=== PATIENT | female | born 1960 | race Hispanic/Latino ===

== ENCOUNTER 2018-06-26 13:10 | Outpatient (RCR) | payer OTHER, SELFPAY ==
--- NOTE | 2018-06-26 16:38 | HP.OTFCE_ITS ---
HP OT Functional Capacity Eval - Task Lift Floor (Occasional 1-33% of Day): 35 Floor (Frequent 34-66% of Day): 25 Floor PDL: Light-Medium Knee (Occasional 1-33% of Day): 35 Knee (Frequent 34-66% of Day): 25 Knee PDL: Light-Medium Waist (Occasional 1-33% of Day): 35 Waist (Frequent 34-66% of Day): 25 Waist PDL: Light-Medium Shoulder (Occasional 1-33% of Day): 35 Shoulder (Frequent 34-66% of Day): 15 Shoulder PDL: Light-Medium Overhead (Occasional 1-33% of Day): 25 Overhead (Frequent 34-66% of Day): 15 Overhead PDL: Light - Work Activity/Posture Bending: Occasional Ability (1-33% of day) Squatting: Occasional Ability (1-33% of day) Kneeling: Occasional Ability (1-33% of day) Reaching out: Frequent Ability (34-66% of day) Reaching up: Frequent Ability (34-66% of day) Sitting: Frequent Ability (34-66% of day) Walking: Frequent Ability (34-66% of day) Standing: Frequent Ability (34-66% of day) - Reference Duration Sedentary Sedentary Light Light Light Medium Medium Medium Heavy Very Heavy Heavy Occasional (0-33% of day) Frequent (34-66% of day) Constant (67-100% of day) 10 # Negligible Negligible 15 # 8 # Negligible 20 # 10# Negli. 35 # 18 # 7 # 50 # 25 # 10 # 75 # 100 # >100 # 38 # 50 # >50 # 15 # 20 # >20 # - Patient Information Hand Dominance: R BP (Medication Use/Usual Values per pt report): No - Medical History Medical History Including Restrictions: No medical restirctions given to her by her doctor via printed report from doctors office and Pt. verbal reported. - Diagnoses Diagnoses: Current: She noted that she was referred to evaluation due to fibromyaglia. PMHx: - Symptoms Symptoms: Client noted symptoms of pain. She reports being at 6/10 pain with inconsisent use of pain scale. She noted I didn't want to come becasue I have been in so much pain. She noted numbness in both wrists and noted some numbness at 4th toe from breaks but localized. - Pain Pain: She reports pain at 6/10 with us eof functional pain scale. Movements noted some increase in pain but no increase in rating report by client. She is currently not on pain management program and notes does not regularly take pain medicine. Reports she is 'scared of becoming additicted but that she was getting releif with oxycodon'. She reports that she is awaiting further imaging and has not had MRI as indurance will likley not cover. She has not recieevd physical therapy of aqua therapy to help with conditions. She reports use of Biofreeze to help manage pain. Iker Pain Questionnaire is a self-report pain assessment to determine a patient?s accurate psychodynamics for accurate pain rating. A score of 30 or high indicates poor psychodynamics and the greater probability of decreased accuracy with accurate pain reporting. Day 1: Pre- Iker: 20. Post Iker: 19. Fear Avoidance Questionnaire (FAQ) is a client self-report assessment for 18-64+ that has shown to be reliable and valid for determining increased fear with movements. A score of 96 or higher indicates increased fear avoidance behaviors. FAQ results: 63. Scale 1: fear avoidance belief about work: 26. Scale 2: fear avoidance belief about physical activity: 15. Oswestry Neck and Low back questionnaire is a self-report assessment in which patients report their perceived level of disability based on their perceived pain. Day 1. Oswestry : - Work History Work History: She last worked at [employer]. She noted that she left January 2018. 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 She worked there for about 11 months per patient report. She noted she had to lift 20 lbs for job. She reports needing to stand for shift with two 15 min breaks. She reports working mostly 6 hour shifts. - Behavioral Behavioral: Stefania reports having lives all over the [place]. She noted that she grew up in [place] in which she has plans to retrun, lived in [place], and then ended up in [place]. She was pleasant and cooperative throughout session but appears tired for most of session. She reports lack of sleep due to pain. She appears to feel more pain that what was observed with movements at times but does have history of PTSD. - ADLS ADLS: Stefania lives with in duplex apartment with four steps to enter. Once in duplex she has FFSU with basement. She explained there are approximately 12 steps to basement where laundry is located. She is completing all daily self- care activities independently and is also driving, completing grocery shopping, and yardwork as tolerated. She further noted ?I just want my feet to work so I can get back to work?. - Physical Examination Physical Examination: BP 147/88. HR 66. 02 97 ROM: limbar flex gonio. 0-33. lumbar ext 0-21. gonio L1 88. goni L 5 75. Hip flexion from flexion R 0-87, L 0-90. knee. l 0-114. R 0-115 Strength: Completed manual muscle testing: Upper Body: 4/5. Lower Body: 4/5 Right Autotransfusionist Strength Average: 49.00 Left Autotransfusionist Strength Average: 41.00 Right Lateral Pinch Average: 14.00 Left Lateral Pinch Average: 12.00 Right Tripod Pinch Average: 10.66 Left Tripod Pinch Average: 8.66 Comments: 5 Span Autotransfusionist Test: Position 1: R 35, L 27 lbs. Position 2: R 53, L 46 lbs. Position 3: R 46, L 38 lbs. Position 4: R 33, L 35 lbs. Position 5: R 30, L 28 lbs Sensation: Completed monofilament touch test to determine sensation. Normal on touch test is 2.83. She score normal for touch sensation. R hand: 2nd 2.83, 3rd 2.83, 4th 2.83, 5th 2.83, thumb 2.83. L hand: 2nd 2.83, 3rd 2.83, 4th 2.83, 5th 2.83, thumb 2.83 Fine Motor: Completed Purdue Pegboard Test to further determine fine motor control and dexerity ability: R hand: 15. L hand: 10. Both Hands: 11. Right + Left+ both : 36. Asseembly: 7 Balance: Functional reach test is used to determine static balance in patients. A score of 15 is normal and less than 10 increases risk of falling. A score of 6 or less significantly increases a patient?s risk of falling. Harrison 1: 12.5 inches. Harrison 2: 12.5 inches. Harrison 3: 12.5 inches. Average: 12.5 inches. HR prior to 59 bpm: - Non Material Handling Activities Bendinx, 10x in 50 seconds, and 1x10 faster in 45 seconds. Able to complete full bend with need for increased knee flexion. Completed in. HR 53 Squattinx, 10x in 40 seconds, 10 x faster in 23 seconds. Kneelinx, 10x in 30 seconds,. Unequal Wbing, increased lateral leaning on R side and Heartrate 74, blood pressure 179/103 (automatic) 141/90 (manually). Seated break during blood pressure and then resumed activity. 10 x faster. Completed i approximately 23 seocnds. Completed with need for right hand to thoguht for support and about 25% of full kneel. Increased pain in foot, Reaching out/up: From standing position: Reaching out: 3x, 10 x in about 15 seocnds, and 10x fast in 10 seconds. Reaching up: 3x, 10x in 13 seconds, 10x fast in 10 seconds. HR 67 Walking: Completed walking around facility. She was unable to complete full walk test as needed to leave session to picker and sorter load and unload granddaughter. Standing: Completed standing for 53 minutes with 2x breaks. Sitting: Completed sitting for 40 mins. She appears to have been able to sit longer and sitting is relief for feet. Climbing Stairs: Able to complete one set of 10 stairs without issue. She completes stairs in home to basement (12 steps) and step sinto home (2-3 steps). - Dynamic Occasional Lifting Capacity Floor Lift: Max Weight: 1x 40 lbs. Occassional: 1x 35 lbs. Frequent: 5x 25 lbs. Completed with fair body mechanics. Some increased compensations and spinal alignment. Knee Lift: Pccasional : 35 lbs. Frequent: 25 lbs. Lifts with Arms more than legs with unequal distribution. Heartrate: 67 bpm. Pain rated at 6/10 Waist Lift: Occasional: 35 lbs. Frequent: 25 lbs. Completed with fair body mechanics. Increased distribution of load to bilateral upper extremities. She is able to maintain spinal alignment. Heartrate: 65 bpm. Pain rated at 6/10 Shoulder Lift: Occasional: 35 lbs. Frequent: 15 lbs. Heartrate: 67 bpm. Pain rated at 6/10 Overhead Lift: Occasional: 25 lbs. Frequent: 15 lbs. Completed with fair body mechanics. Some increased cervical flexion noted, equal weigthbearing observed through bilateral lower extremities, and some increased compensations and mechanical changes with weight above 35 lbs. Heartrate: 69 bpm. Pain rated at 6/10 Carrying: Bilateral carry with 25 lbs with some increased thoracic extension. Heartrate: 67 bpm. Pain rated at 6/10. Blood Pressure: 163/87 mmHg (automatic), 137/81 mmHg (manual)
--- NOTE | 2018-06-28 09:26 | HP.OTFCE_ITS ---
HP OT Functional Capacity Eval - Task Lift Floor (Occasional 1-33% of Day): 35 Floor (Frequent 34-66% of Day): 25 Floor (Constant 67-100% of Day): 10 Floor PDL: Light-Medium Knee (Occasional 1-33% of Day): 35 Knee (Frequent 34-66% of Day): 25 Knee (Constant 67-100% of Day): 10 Knee PDL: Light-Medium Waist (Occasional 1-33% of Day): 35 Waist (Frequent 34-66% of Day): 25 Waist (Constant 67-100% of Day): 10 Waist PDL: Light-Medium Shoulder (Occasional 1-33% of Day): 35 Shoulder (Frequent 34-66% of Day): 15 Shoulder (Constant 67-100% of Day): 10 Shoulder PDL: Light-Medium Overhead (Occasional 1-33% of Day): 25 Overhead (Frequent 34-66% of Day): 15 Overhead (Constant 67-100% of Day): 10 Overhead PDL: Light - Work Activity/Posture Bending: Occasional Ability (1-33% of day) Squatting: Occasional Ability (1-33% of day) Kneeling: Occasional Ability (1-33% of day) Reaching out: Frequent Ability (34-66% of day) Reaching up: Frequent Ability (34-66% of day) Sitting: Frequent Ability (34-66% of day) Walking: Frequent Ability (34-66% of day) Standing: Frequent Ability (34-66% of day) - Reference Duration Sedentary Sedentary Light Light Light Medium Medium Medium Heavy Very Heavy Heavy Occasional (0-33% of day) Frequent (34-66% of day) Constant (67-100% of day) 10 # Negligible Negligible 15 # 8 # Negligible 20 # 10# Negli. 35 # 18 # 7 # 50 # 25 # 10 # 75 # 100 # >100 # 38 # 50 # >50 # 15 # 20 # >20 # - Patient Information Height: 58 cm Weight:: 58.831 kg Hand Dominance: R BP (Medication Use/Usual Values per pt report): No - Medical History Medical History Including Restrictions: No medical restirctions given to her by her doctor via printed report from doctors office as well as verbal report by patient. - Diagnoses Diagnoses: Current: Stefania was referred for functional capacity evaluation due to fibromyalgia and chronic low lumbar related pain. PMHx: Per Pt. report she has history of bone spur of R heel, DDD of cervical spine and lumbar, degenerative joint disease affecting B knees, and fibromyalgia. 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 From 05/23/18 from phone call and from today of 06/26/18: She notes that she has not had MRI within the last year and has had no previous MRI or imaging to confirm conditions. As per Dr. Monet?s office after speaking with nurse Patterson, Pt. did have bilateral knee x rays two years ago which were normal and refused to get further imaging when in office. No physical therapy received for current condition. - Symptoms Symptoms: Client noted symptoms of generalized pain. She reports being at 6/10 pain with inconsistent use of pain scale and demonstrated behaviors. She noted I didn't want to come because I have been in so much pain. She noted further numbness in both wrists and noted some numbness at 4th toe from previous fracture. Numbness if localized per patient report. - Pain Pain: She reports pain at 6/10 with use of functional pain scale. Movements are reported to increase pain per patient but no increase in rating reported by client during movement tasks of evaluation. Appears to have some inconsistencies with reported pain symptoms and actual rating of pain. She is currently not on pain management program per report and notes she does not regularly take pain medicine. She did however take two aspirins this morning around 7:00 or 8:00 a.m. Doctors report from 03/02/18 reports she was to follow up with Dr. Moscoso for pain management in February, but Pt. explained she did not follow up with pain management clinic. Additionally, she was to have MRI completed of cervical and lumbar per patient's report on doctor noted but Stefania reports no MRI completion in last year. Client further explained she was waiting to hear if insurance approved imaging. Stefania reports she is 'scared of becoming addicted but that she was getting relief with oxycodone' and prefers not to take pain medications but took three in one day because ?pain in my right foot was so bad. They think I might have a heel spur. Once I told doctor I took that many they took me off the medications. Stefania reports L knee pain and general pain throughout body. She has not received physical therapy or aquatic therapy to help with conditions. She reports use of Biofreeze to help manage pain. From report when talking with nurse, Yesenia, and further reading report from doctor an x-ray to both knees were completed two years ago in which imaging indicated normal joints. Stefania completed the following self-report questionnaires to help therapist assess pain: Iker Pain Questionnaire is a self-report pain assessment to determine a patient?s accurate psychodynamics for accurate pain rating. A score of 30 or high indicates poor psychodynamics and the greater probability of decreased accuracy with accurate pain reporting. Day 1: Pre- Iker: 20. Post Iker: 19. Pain decreased post completion of evaluation. Fear Avoidance Questionnaire (FAQ) is a client self-report assessment for 18-64+ that has shown to be reliable and valid for determining increased fear with movements. A score of 96 or higher indicates increased fear avoidance behaviors. FAQ results: 63. Scale 1: fear avoidance belief about work: 26. Scale 2: fear avoidance belief about physical activity: 15. Oswestry Neck and Low back questionnaire is a self-report assessment in which patients report their perceived level of disability based on their perceived pain. Oswestry : 13/50= 26 % perceived disability - Work History Work History: She last worked at [employer]. She noted that she left around January 2018. 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 She worked there for about 9-11 months per patient report. She noted she had to lift 20 lbs for job. She reports needing to stand for six-hour shift with two 15 min breaks. She reports working mostly 6-hour shifts. She noted ?it was an easy job? but then later needed to quit due to pain. - Behavioral Behavioral: Stefania reports having lived all over the [place]. She noted that she grew up in [place] in which she has plans to return, she has lived in [place], and then ended up in [place]. She was cooperative throughout session but appeared tired and at times lethargic for most of session. Additionally, a flat affect was noted but she did express emotion for love of granddaughter. She reports lack of sleep due to pain and that ?she can?t and won?t cry in front of due to pain? and that she ' doesn't like to should her family how much pain she is in'. She reports she helps care for her granddaughter and that ?I will do anything for that girl. I love her so much?. She reports intent to move back to [place] but noted sister has and it is unclear if that was who she was intending of living with when moving. She appears to feel more pain than what was observed with movements and mechanical changes but does have diagnosis of fibromyalgia as well as post-traumatic stress disorder both of which can affect pain. - ADLS ADLS: Stefania lives with in duplex apartment with four steps to enter. Once in duplex she has first floor set-up with basement. She explained there are approximately 12 steps to basement where laundry is located. She is completing all daily self-care activities independently and is also driving, completing grocery shopping, and yardwork as tolerated. She explained that she gets up around 4:30 a.m. to regularly cook breakfast. She further noted ?I just want my feet to work so I can get back to work?. - Physical Examination Physical Examination: The purpose of this functional capacity evaluation (FCE) was to determine Stefania's physical ability. Stefania was referred from Dr. Monet?s office due to chronic pain and patient report of inability to work for the last five to six months due to pain. This FCE was performed in order to mold maker helper in the determination of Stefania's physical ability and eligibility to get social security disability. Aerobic limiting factor: 85% of max adjust HR= (220- age)*.85 = 140 bpm. Calculated max weight: 60% of weight = 77.4 lbs. Blood Pressure (BP): 147/88 mmHg. Heart Rate: 66 bpm. Oxygen at room saturation: 97% ROM: Range of Motion measurements completed for the following: Lumbar Spine: Lumbar flexion with goniometer: 0-33 degrees- with increased compensations noted by patient throughout thoracic spine so completed inclinometric measurements to get more accurate measurements and are as follows: Inclinometric measurements: -L1: 88. - L 5: 75. -Total lumbar movements: 13 degrees. Lumbar extension with goniometer: Extension: 0-21 degrees. Hip range of motion: Hip flexion from flexion from supine: - R 0-87. - L 0-90. Knee Flexion: -L 0-114 from prone position and limited by soft tissue. -R 0-115 from prone position and limited by soft tissue. Strength: Completed manual muscle testing on the following: Upper Body: Shoulder flexion: R 4/5, L 4/5. Shoulder abduction: R 4/5, L 4/5. Elbow flexion: R 4/5, L 4/5. Elbow extension: R 4/5, L 4/5. Wrist flexion: R 4/5, L 4/5. Wrist extension: R 4/5, L 4/5. Individual Finger flexion (digit 2-5th ): R 4/5, L 4/5. Lower Body: Hip flexion: R 4-/5, L 4/5. Hip abduction: R 4+/5, L 4+/5. Hip Adduction: R 4+/5, L 4+/5. Knee extension: R 4+/5, L 4+/5. Knee flexion: R 4-/5, L 4+/5. Ankle dorsiflexion: R 4/5, L 4/5. Ankle plantarflexion: R 4/5, L 4/5. Completed empty can test as well as bicep load test in which increased good shoulder integrity of rotator cuff and superior labrum. Right Carpentry Specialist Strength Average: 49.00 Right Carpentry Specialist Strength Percentile: 64th Left Carpentry Specialist Strength Average: 41.00 Left Carpentry Specialist Strength Percentile: 62 nd Right Lateral Pinch Average: 14.00 Right Lateral Pinch Percentile: 75th Left Lateral Pinch Average: 12.00 Left Lateral Pinch Percentile: between 50th and 75th Right Tripod Pinch Average: 10.66 Right Tripod Pinch Percentile: above 25 but below 50th Left Tripod Pinch Average: 8.66 Left Tripod Pinch Percentile: 25th Comments: 5 Span Carpentry Specialist Test: Position 1: R 35, L 27 lbs. Position 2: R 53, L 46 lbs. Position 3: R 46, L 38 lbs. Position 4: R 33, L 35 lbs. Position 5: R 30, L 28 lbs Sensation: Completed monofilament touch test to determine sensation. Normal on touch test is 2.83. She score normal for touch sensation. R hand: 2nd 2.83, 3rd 2.83, 4th 2.83, 5th 2.83, thumb 2.83. L hand: 2nd 2.83, 3rd 2.83, 4th 2.83, 5th 2.83, thumb 2.83 Fine Motor: Completed Purdue Pegboard Test to further determine fine motor control and dexterity ability: R hand: 15. - percentile: approximately 30th. L hand: 10. - percentile: below 1st. Both Hands: 11. -percentile: 5th percentile. Right + Left+ both: 36. - percentile: approximately 2nd. Assembly: 7. - percentile: below 1st Balance: Functional reach test is used to determine static balance in patients. A score of 15 is normal and less than 10 increases risk of falling. A score of 6 or less significantly increases a patient?s risk of falling. [place] 1: 12.5 inches. [place] 2: 12.5 inches. [place] 3: 12.5 inches. Average: 12.5 inches. HR prior to FGA 59 bpm. Functional Gait Assessment (FGA) is a dynamic balance test to determine vestibular functioning and general dynamic balance ability of patient 18-65+. This assessment can be used with clients of various backgrounds to determine functional dynamic balance needed to complete every day work related tasks. 1.Gait Level Surface:2. 2.Change in Gait Speed: 3. 3.Gait with horizontal head turns:2. 4.Gait with vertical head turns:3. 5.Gait and pivot t urn:3. 6.Step over obstacle:2. 7.Gait with narrow base of support: 2. 8.Gait with eyes closed: 2. 9.Ambulating Backwards: 3. Heart rate prior to stairs: 60 bpm. 10.Steps: 2. Hear rate post stairs: 68 bpm. Total Score: 24/maximum score 30. Blood pressure post stairs 169/105 mmHg. After 5 mins seated break: 150/90 mmHg - Non Material Handling Activities Bendinx, 10x in 50 seconds, and 1x10 faster in 45 seconds. Able to complete full bend with need for slight increased knee flexion. Completed with some increased compensation of thoracic flexion. No increase in pain reported by patient. Slight increase in second 'faster set'. Equal weightbearing into bilateral lower extremities and no signs of pain related behaviors. Heartrate remained consistent and Stefania showed signs of fatigue but was able to continue standing for next task of squatting. Denied dizziness or no feeling well during or after task. Heartrate: 53 Squattinx, 10x in 40 seconds, 10 x faster in 23 seconds. Completed squatting with fair body mechanics. She exhibits appropriate foot width to promote movements and was able to complete about 75% of full squat. Observed mechanical changes with increased thoracic spine extension. No mechanical deficits observed with 75% of full squat movements. After tasks needed short 1- minute seated break. Reported pain consistent at 6/10. Heart rate consistent for task. Kneelinx, 10x in 30 seconds, 10 x faster. Completed in approximately 23 seconds. Unequal weightbearing, increased lateral leaning to right lower extremity side, and observable fair body mechanics. Heartrate increased to 74, blood pressure 179/103 mmHg (automatic) 141/90 mmHg (manually). Seated break due to blood pressure and then resumed activity once it lower back to 141/90 mmHg. Completed 10 x faster with need for right hand to thigh for support and about 25% of full kneel. Increased pain in foot noted but able to continue standing for next task. Noted that R foot pain is severe at times. Reaching out/up: From standing position: Reaching out: 3x, 10 x in about 15 seconds, and 10x fast in 10 seconds. Reaching up: 3x, 10x in 13 seconds, 10x fast in 10 seconds. Good body mechanics. No mechanical changes observed, or pain behaviors noted. Upper extremity observed to be able to obtain appropriate range of motion needed for task and equal range to bilateral upper extremities. Heartrate consistent at 67 bpm. Walking: Completed walking around facility. She was unable to complete full walk test as needed to leave session to picker/puller granddaughter. Stood or walked around facility for 15 mins prior to needing seated break and was able to complete standing related tasks 53 minutes with need for two seated breaks lasting 1-2 minutes sitting breaks. 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 She is able to continue to complete stairs in home and continues to go out into community. Standing: Completed standing, both static and dynamic tasks, for 53 minutes with two seated tasks lasting 1-2 minutes. Noted foot pain in right foot but rated pain consistent at 6/10. Some pain behaviors noted when taking seated break but often able and to continue task after short break. Sitting: Completed sitting for 40 mins. She appears to have been able to sit longer and sitting is a relief for feet per patient report. She noted that sitting is often her most comfortable position. Climbing Stairs: Able to complete one set of 10 stairs. She completed stairs with slight antalgic gait and use of one handrail for ascending tasks and between none and one hand rails for descending tasks. She was exhibited to be more cautious with descending tasks and used eyes frequently as well as trunk extension to complete tasks. She completes stairs in home to basement (12 steps) and steps into home (2-3 steps). She noted at previous job, [employer], she did not need to complete any stairs. - Dynamic Occasional Lifting Capacity Floor Lift: Max Weight: 1x 40 lbs. Occasional: 1x 35 lbs. Frequent: 5x 25 lbs. Completed with fair body mechanics. Some increased compensations and spinal ali gnment noted with weight over 35 lbs. Occasional weight is 35 lbs. Equal weight bearing distribution observed to bilateral upper extremities. Observed to lift with arms over legs with greater pull of both coming from upper body. No pain behaviors noted. Stefania rated pain consistently at 6/10 pain. Knee Lift: Occasional: 1x35 lbs. Frequent: 5x25 lbs. Prior to task noted this should be easier since box was up off floor. Unequal distribution between upper body and lower body. Fair body mechanics. Slight compensations noted of increased spinal extension. Pain consistent at 6/10. No pain behaviors observed. Heartrate: 67 bpm. Pain rated at 6/10 Waist Lift: Occasional: 1x 35 lbs. Frequent: 5x 25 lbs. Completed with fair body mechanics. Increased distribution of load to bilateral upper extremities. Unequal weightbearing observed between upper and lower body. Minimal compensations observed of trunk extension observed. No pain behaviors noted. Heartrate maintained. Reports pain at 6/10. Heartrate: 65 bpm. Pain rated at 6/10 Shoulder Lift: Occasional: 1x 35 lbs. Frequent: 5x 15 lbs. Completed with fair body mechanics. Increased mechanical compensations noted of cervical flexion and lumbar extension to place box at 35 lbs. She should not exceed that weight and increased weight causes increased mechanical changes. Minimal compensations noted at 15 lbs. She was able to maintain spinal alignment and good mechanics with 15 lbs. Pain report at 6/10. Slight grimace observed. Heartrate: 67 bpm. Pain rated at 6/10 Overhead Lift: Occasional: 1x 25 lbs. Frequent: 5x 15 lbs. Completed with fair body mechanics. Some increased cervical flexion noted, equal weight bearing observed through bilateral lower extremities, and some increased compensations and mechanical changes with weight above 35 lbs. She reports pain at 6/10 but limited pain behaviors observed. Performance classifies at light range physical performance range. Heartrate: 69 bpm. Pain rated at 6/10 Carrying: Bilateral carry with 1x 25 lbs for 20 feet with some increased thoracic extension but good body mechanics and equal weight distribution to bilateral lower and upper extremities. Heartrate: 67 bpm. Pain rated at 6/10. Blood Pressure: 163/87 mmHg (automatic), 137/81 mmHg (manual). Completed seated breaks prior to leaving session.
--- NOTE | 2018-06-28 09:26 | HP.OTFCE.D ---
FCE D/C Summary - Discharge DODIE PAZ was seen for a one time visit for an FCE on 06/26/18 and is discharged.
== END 2018-06-26 19:00 | disposition home or self-care (01) ==
LOC: OT 13:10
PROVIDERS: Family Provider Student in an Organized Health Care Education/Training Program; PCP Student in an Organized Health Care Education/Training Program; Referring Provider Student in an Organized Health Care Education/Training Program; Visit Provider Student in an Organized Health Care Education/Training Program
DX: M79.7 Fibromyalgia (principal); M54.5 Low back pain; G89.29 Other chronic pain
CPT/HCPCS: 97750

== ENCOUNTER 2020-02-24 12:57 | Emergency (ER) | payer OTHER, SELFPAY ==
[2020-02-24 12:58] VITALS: BP 182/75; PULSE 52; RESP 18; TEMP 36.1; O2SAT 100; BMI 22.3
--- NOTE | 2020-02-24 13:44 | EKG12_ITS ---
Test Reason : Blood Pressure : / mmHG Vent. Rate : 054 BPM Atrial Rate : 054 BPM P-R Int : 138 ms QRS Dur : 078 ms QT Int : 478 ms P-R-T Axes : 020 045 027 degrees QTc Int : 453 ms Sinus bradycardia Otherwise normal ECG Confirmed by ARIANA JOHNSON, JORDAN ([id number]), editor continuity and script JOLANTA PIPER ([id number]) on 02/26/2020 9:31:39 AM Referred By: Confirmed By:JORDAN LANE MD
[2020-02-24 13:47] LABS: Absolute Lymphocyte Count 0.89 X10^3/uL (0.83-4.51); Absolute Neutrophil Count 8.6 X10^3/uL (2.0-7.7); Basophil# 0.02 X10^3/uL; Basophil% 0.2 % (0-1); Eosinophil# 0.01 X10^3/uL; Eosinophils% 0.1 % (0-5); Hematocrit 38.6 % (37-47); Hemoglobin 13.7 g/dL (12.0-15.0); Lymphocyte # 0.89 X10^3/ul (4.0); Lymphocyte % 9.1 % (19-41); Mean Corp Hgb Conc 35.5 g/dL (32-36); Mean Corpuscular Hgb 33.3 pg (27.0-32.0); Mean Corpuscular Volume 93.9 fL (81-99); Monocyte# 0.17 X10^3/uL; Monocyte% 1.7 % (0-10); NRBC Flagged by Analyzer 0 % (0-5); Neutrophil # 8.63 X10^3/uL (2.7-7.7); Neutrophil % 88.5 % (47-70); Platelet Count 295 K/mm3 (150-450); RBC Distribution Width CV 13.3 % (11.6-14.6); RBC Distribution Width SD 44.9 fl (35.1-43.9); Red Blood Count 4.11 M/mm3 (4.2-5.4); White Blood Count 9.8 K/mm3 (4.4-11.0)
[2020-02-24 14:00] LABS: Anion Gap 4 (5-15); BUN 10 mg/dL (7-18); BUN/Creat Ratio 18.5 RATIO (10-20); Calcium,Total 8.5 mg/dL (8.5-10.1); Chloride 105 mmol/L (98-107); Creatinine, Serum 0.54 mg/dL (0.55-1.02); EST Glomerular Filtration Rate 123 mL/min (>60); Est Glom Filt Rate - Afr Amer 149 mL/min (>60); Estimated Creatinine Clearance 99.26 ml/min; Glucose 128 mg/dL (74-106); Potassium 3.5 mmol/L (3.5-5.1); Sodium Level 134 mmol/L (136-145)
[2020-02-24] MEDS: Morphine 4 MG/ML Syringe IV (14:27)
[2020-02-24] MEDS: Ondansetron 4 MG/2 ML Vial IV (14:27)
[2020-02-24] MEDS: 0.9% Normal Saline 1,000 ML 150 ML IV (14:30)
[2020-02-24 16:00] LABS: AST(SGOT) 8 U/L (15-37); Alanine Aminotransfer ALT/SGPT 19 U/L (13-56); Albumin, Serum 3.9 g/dL (3.2-5.0); Alkaline Phosphatase 165 U/L (45-117); Bilirubin, Direct 0.09 mg/dL (0.00-0.30); Globulin 4.2 g/dL (2.2-4.2); Lipase 63 U/L (73-393); Protein, Total 8.1 g/dL (6.4-8.2)
--- NOTE | 2020-02-24 16:04 | CT_ITS ---
STUDY: CT ABDOMEN AND PELVIS WITHOUT CONTRAST REASON FOR EXAM: Female, 59 years old. SUDDEN ONSET OF EPIGASTRIC PAIN, N/V, VOMITING UP BILE RADIATION DOSAGE (If Supplied By Facility): CTDIvol = ( 11.59 ) mGy, DLP = ( 461.20 ) mGycm TECHNIQUE: Transaxial images were obtained from the dome of the diaphragm to the symphysis pubis without oral contrast, and without intravenous contrast. Sagittal and coronal images were reconstructed. Individualized dose optimization techniques were used for this CT. COMPARISON: None. FINDINGS: Minor atelectasis within the dependent portion lungs.. The visualized portions of the heart are within normal limits. Nonspecific fatty infiltration of liver without mass or bile duct dilatation. Normal gallbladder and extrahepatic biliary system. Normal spleen. Normal pancreas. Normal bilateral adrenal glands. Normal right kidney. Normal left kidney. There is thickening of the rugal folds of the stomach which is mildly distended as is the duodenum in association with thickening of the [place] of the post bulbar duodenum consistent with nonspecific gastroduodenitis. Normal small intestine. Diverticular changes of the descending colon without evidence for acute diverticulitis.. The appendix is visualized and appears normal. Mild atherosclerotic changes of the aorta without evidence for aneurysm.. Normal inferior vena cava. Normal retroperitoneum. Normal urinary bladder. Normal abdominal wall. Normal osseous structures. CT/Abdomen/Pelvis W IV Cont ONLY IMPRESSION: Findings consistent with nonspecific gastroduodenitis. No evidence for small bowel obstruction. Diverticular changes of the descending colon without evidence for acute diverticulitis Electronically Signed: Bennie Guerra MD at 17:00 EDT , Service support ,
--- NOTE | 2020-02-24 16:05 | ED.VIS.GEN ---
History of Present Illness Chief Complaint: Abd Pain Informant: Patient, Family Onset: Today Current Severity: Moderate Maximum Severity: Severe Narrative: Patient presents secondary to upper abdominal pain that started at 4 AM this morning. She has had nausea and dry heaves. Family states that she does not typically complain of pain and when patient was easily agreeable to coming to the emergency room they were concerned that there was seriously wrong. Patient has not taken anything for pain. Her only prior abdominal surgery is tubal ligation. - Past Medical History (1) Degenerative disc disease Status: Chronic (2) Arthritis Status: Chronic Past Medical History - Allergies and Home Meds Allergies/Adverse Reactions: Allergies No Known Allergies Allergy (Verified 02/24/20 13:01) Primary Care Physician: Yaya Monet DO [Primary Care Provider] - Prior records reviewed: Yes Surgical History: - - Tubal ligation Smoking Status: Never smoker Review of Systems General: Denies: Chills, Fever Eyes: Denies: Visual changes - bilaterally ENT: Denies: Bilateral ear pain Cardiovascular: Denies: Chest pain Respiratory: Denies: Dyspnea, Cough Gastrointestinal: Reports: Abdominal pain, Nausea. Denies: Diarrhea, Constipation Genitourinary: Denies: Dysuria Musculoskeletal: Denies: Swelling, Extremity Pain Neurological: Denies: Headache Hematologic: Denies: Easy bruising, Easy bleeding Allergy: Denies: Uticaria Physical Exam Vital Signs/Narrative: Vital Signs Temp Pulse Resp BP Pulse Ox 02/24/20 12:58 97.0 F L 52 L 18 182/75 H 100 Inital Vital Signs reviewed: Yes General: Well nourished, Well developed Head: Normocephalic ENT: Moist mucous membranes Neck: Supple Cardiovascular: Regular rate, Regular rhythm Respiratory: No distress, CTA bilaterally Abdomen: Soft, Tender - Epigastric tenderness to palpation.. Negative for: Guarding, Rebound tenderness Extremities: Nontender Skin: Normal color Neurological: Alert, Oriented x3 Psychological: - - Anxious Diagnostic/Tx/Re-eval Impressions Abdomen/Pelvis CT 02/24/20 16:04 IMPRESSION: Findings consistent with nonspecific gastroduodenitis. No evidence for small bowel obstruction. Diverticular changes of the descending colon without evidence for acute diverticulitis Electronically Signed: Bennie Guerra MD at 17:00 EDT , Service support , 02/24/20 16:04 Abdomen/Pelvis W IV Cont ONLY [CT] Stat Laboratory Results 02/24/20 02/24/20 02/24/20 13:30 13:30 13:30 WBC 9.8 RBC 4.11 L Hgb 13.7 Hct 38.6 MCV 93.9 MCH 33.3 H MCHC 35.5 RDW Std Deviation 44.9 H RDW Coeff of Bibi 13.3 Plt Count 295 MPV 9.0 Immature Gran % (Auto) 0.400 Neut % (Auto) 88.5 H Lymph % (Auto) 9.1 L [place] % (Auto) 1.7 Eos % (Auto) 0.1 Baso % (Auto) 0.2 Absolute Neuts (auto) 8.6 H Absolute Lymphs (auto) 0.89 Nucleated RBC % 0 Sodium 134 L Potassium 3.5 Chloride 105 Carbon Dioxide 25.0 Anion Gap 4 L BUN 10 Creatinine 0.54 L Estim Creat Clear Calc 99.26 Est GFR (MDRD) Af Amer 149 Est GFR (MDRD) Non-Af 123 BUN/Creatinine Ratio 18.5 Glucose 128 H Calcium 8.5 Total Bilirubin 0.30 Direct Bilirubin 0.09 AST 8 L ALT 19 Alkaline Phosphatase 165 H Troponin I < 0.015 Total Protein 8.1 Albumin 3.9 Globulin 4.2 Lipase 63 L - EKG Initial EKG Interpretation: Sinus Bradycardia - Sinus bradycardia at 54 bpm with no acute ischemia. Follow-up EKG Interpretation: Sinus Bradycardia - Sinus bradycardia at 52 with no acute ischemia. - Medical Decision Making Patient was given morphine, Zofran, and Protonix. I was notified by nursing staff that she was having increased chest pain. Repeat EKG is unremarkable and GI cocktail was ordered. CT scan reveals evidence of gastritis and duodenitis. Her liver enzymes and lipase are normal. Patient will be given prescription for Protonix as well as Zofran. I have recommended follow-up with surgery for potential EGD. ED Disposition - Plan for ED Patient: Disposition: Home or Assisted Living Diagnosis: Gastritis, Duodenitis Instructions: ED Gastritis Prescriptions: Pantoprazole Sodium [Protonix] 40 mg PO DAILY #30 tab Transmission Status: Pending to [facility] #30 Ondansetron [Zofran Odt] 4 mg PO Q8H PRN PRN #14 tab PRN Reason: Nausea Transmission Status: Pending to [email or web address] #30 Referrals: Yesenia Ornelas MD [STAFF PHYSICIAN] - 1-2 Weeks Yaya Monet DO [Primary Care Provider] - 1 Week if not improving
--- NOTE | 2020-02-24 16:10 | EKG12_ITS ---
Test Reason : CP Blood Pressure : / mmHG Vent. Rate : 052 BPM Atrial Rate : 052 BPM P-R Int : 138 ms QRS Dur : 076 ms QT Int : 500 ms P-R-T Axes : 024 046 015 degrees QTc Int : 465 ms Sinus bradycardia Otherwise normal ECG Confirmed by NOEL JOHNSON, ALISSA ([id number]), editorial cartoonist JOLANTA PIPER ([id number]) on 02/26/2020 10:44:26 AM Referred By: FRAN Confirmed By:ALISSA COHEN MD
[2020-02-24] MEDS: Mag Hydrox/Al Hydrox/Simeth 30 ML UDC PO (17:30)
[2020-02-24 17:33] VITALS: RESP 16
== END 2020-02-24 17:35 | disposition home or self-care (01) ==
PROVIDERS: Emergency Provider Emergency Medicine; PCP Student in an Organized Health Care Education/Training Program
DX: K29.70 Gastritis, unspecified, without bleeding (principal); K29.80 Duodenitis without bleeding
CPT/HCPCS: 74177; 80048; 80076; 83690; 84484; 85025; 93005; 96361; 96365; 96375; 99285; J7030; Q9967; A4216; J2405

== ENCOUNTER 2021-02-24 08:56 | Inpatient (IN) | payer OTHER, SELFPAY ==
[2021-02-24] VITALS (9 sets, daily range): BP systolic 136–185; BP diastolic 69–127; PULSE 50–64; RESP 16–18; TEMP 36.6–37.7; O2SAT 97–100; BMI 20.4; BMI 19.5
--- NOTE | 2021-02-24 09:25 | CT_ITS ---
STUDY: CT ABDOMEN AND PELVIS WITH CONTRAST REASON FOR EXAM: Female, 60 years old. Abdominal pain RADIATION DOSAGE (If Supplied By Facility): CTDIvol = ( 11.59 ) mGy, DLP = ( 461.20 ) mGycm TECHNIQUE: Transaxial images were obtained from the dome of the diaphragm to the symphysis pubis with oral contrast. 75 ml of ISOVUE-370 contrast was administered. Sagittal and coronal images were reconstructed. Individualized dose optimization techniques were used for this CT. COMPARISON: None. FINDINGS: The visualized lung bases are clear. The visualized portions of the heart and pericardium are within normal limits. There are no calcified gallstones present. The liver is within normal limits. There are no suspicious hepatic lesions. The spleen is normal in size. The pancreas is within normal limits. The adrenal glands are within normal limits. There are no renal or ureteral stones. There is no hydronephrosis. There are no focal renal lesions. Normal visualized stomach. There is no bowel obstruction. There is bowel wall thickening the transverse colon, descending colon and sigmoid colon. This is consistent with colitis. The appendix is visualized and appears normal. The aorta is normal in caliber. There is no abdominal or pelvic free air, free fluid, fluid collection or lymphadenopathy. There are no destructive osseous lesions. CT/Abdomen/Pelvis W IV Cont ONLY IMPRESSION: Colitis in the transverse, descending and sigmoid colon. No bowel obstruction. Normal appendix. No free air, free fluid or fluid collection. Electronically Signed: Milind Mims MD at 10:13 EDT Tel , Service support ,
--- NOTE | 2021-02-24 09:26 | EDS_ITS ---
HPI HPI - GI History of Present Illness Chief Complaint: Abd Pain Narrative Narrative: 60-year-old female presenting with nausea, vomiting, diarrhea with generalized abdominal pain which is worse in epigastric area. Patient states that this is been ongoing for about 3 days. She is not been able to hold down food or fluids. Patient denies any significant medical problems except for acid reflux and some arthritis. Her daughter states that they have all been eating the same food and she did not think it was food poisoning. She states that they thought it was a stomach flu but since it is not getting better they bring her in for evaluation. Patient does not have a cough, shortness of breath, body aches, chills or fever. Patient denies previous abdominal surgeries. Patient has not been vaccinated for COVID-19. She has no known sick contacts. Nobody in the household is ill other than her. No known exposures to illness. Patient admits to smoking but states she does not drink alcohol. Patient does admit to recent clindamycin use for a dental infection. This was about 2 weeks ago. PFSH PFSH Medical History no medical history Home Medications ondansetron 4 mg PO Q8H PRN PRN #14 tab 02/24/20 [Rx Last Taken Unknown] pantoprazole 40 mg PO DAILY #30 tab 02/24/20 [Rx Last Taken Unknown] Allergy/AdvReac Type Severity Reaction Status Date / Time No Known Allergies Allergy Verified 02/24/21 08:58 Social History Smoking Status: Never smoker [facility] ED Constitutional Constitutional ED: Denies chills or fever(s) ENT ENT ED: Denies rhinorrhea or sore throat Cardiovascular Cardiovascular: Denies chest pain or palpitations Respiratory/Chest Respiratory/Chest: Denies cough, dyspnea or sputum Gastrointestinal Gastrointestinal: Reports abdominal pain, diarrhea, nausea and vomiting Genitourinary Genitourinary ED: Denies dysuria Musculoskeletal Musculoskeletal: Denies arthralgias, back pain, myalgias or neck pain Integumentary Denies Abrasions or rash Neurologic Neurologic: Reports headache(s); Denies paresthesias or weakness EXAM Physical Exam Const Vital Signs: 02/24/21 08:56 02/24/21 08:58 02/24/21 09:39 Temperature 97.8 F 97.8 F Temperature Source Temporal Temporal Pulse Rate 61 61 61 Respiratory Rate 18 18 18 Blood Pressure 185/127 H 185/127 H 159/87 H Blood Pressure Mean 146 146 111 Pulse Ox 99 99 100 Oxygen Delivery Method Room Air Room Air Room Air 02/24/21 09:58 02/24/21 10:34 Temperature 97.8 F Temperature Source Temporal Pulse Rate 53 L 53 L Respiratory Rate 16 16 Blood Pressure 156/88 H 156/88 H Blood Pressure Mean 110 110 Pulse Ox 100 100 Oxygen Delivery Method Room Air Room Air Positive well nourished General Appearance ED: NAD; Negative for pallor HEENT Reports dry mucous membranes normocephalic and atraumatic Mouth ED: Yes dry mucous membranes Mouth: dry mucous membranes Eyes PERRL and EOMs intact bilaterally General Eye ED: Negative for pale conjunctiva or scleral icterus Resp normal respiratory effort and clear to auscultation bilaterally Cardio regular rate and regular rhythm GI GI Narrative: Generalized abdominal tenderness with the most tenderness being in the epigastrium. Negative Rodriguez sign. Abdomen is nonperitoneal. Back/Spine no CVA tenderness Neuro Sensorium / Orientation: alert, oriented to person, oriented to place and or iented to time Psych mental status grossly normal and thought process normal Skin General Skin Exam: Negative for jaundice or pallor MDM MDM MDM Narrative Medical decision making narrative: 60-year-old female presenting with abdominal pain which is diffuse and worse in the epigastrium. Patient states she has been vomiting and not been able to tolerate p.o. intake. She also complains of diarrhea. It is found that she was recently on amoxicillin for her tooth and then clindamycin. She has no history of C. difficile however her white blood cell count is elevated at 20.9. Renal function is normal. Potassium slightly low at 3.1. Magnesium is 2.1. LFTs are normal. Urinalysis negative for infection. I did obtain a CT of the abdomen pelvis which does show pancolitis. Patient is unable to give me a stool sample in ER but I have concern for C. difficile colitis. Given that she cannot tolerate p.o. intake and likely will need antibiotics for C. difficile I did discuss the patient with the hospitalist for admission and symptomatic treatment until we can obtain a stool study. She was amenable. Patient admitted in stable condition. Impression: 1. Diarrhea 2. Leukocytosis 3. Concern for C. difficile colitis Lab Data Attestation: I reviewed the patient's lab results. Labs: Laboratory Results - last 24 hr 02/24/21 02/24/21 02/24/21 09:14 09:14 09:14 WBC 20.9 H RBC 4.65 Hgb 14.3 Hct 42.4 MCV 91.2 MCH 30.8 MCHC 33.7 RDW Std Deviation 43.1 RDW Coeff of Bibi 12.9 Plt Count 354 MPV 8.9 Immature Gran % (Auto) 0.600 Neut % (Auto) 89.2 H Lymph % (Auto) 5.7 L [place] % (Auto) 4.4 Eos % (Auto) 0.0 Baso % (Auto) 0.1 Absolute Neuts (auto) 18.7 H Absolute Lymphs (auto) 1.19 Nucleated RBC % 0 Sodium 137 Potassium 3.1 L Chloride 104 Carbon Dioxide 24.0 Anion Gap 9 BUN 9 Creatinine 0.65 Estim Creat Clear Calc 80.39 Est GFR (MDRD) Af Amer 120 Est GFR (MDRD) Non-Af 99 BUN/Creatinine Ratio 13.8 Glucose 127 H Calcium 9.0 Magnesium 2.1 Total Bilirubin 0.40 AST 6 L ALT 20 Alkaline Phosphatase 116 Total Protein 8.4 H Albumin 3.8 Globulin 4.6 H Albumin/Globulin Ratio 0.8 L Lipase 65 L Urine Color Urine Clarity Urine pH Ur Specific [place] Urine Protein Urine Glucose (UA) Urine Ketones Urine Occult Blood Urine Nitrite Urine Bilirubin Urine Urobilinogen Ur Leukocyte Esterase Urine RBC Urine WBC Ur Squamous Epith Cells Urine Bacteria Urine Mucus Urine Yeast 02/24/21 10:20 WBC RBC Hgb Hct MCV MCH MCHC RDW Std Deviation RDW Coeff of Bibi Plt Count MPV Immature Gran % (Auto) Neut % (Auto) Lymph % (Auto) [place] % (Auto) Eos % (Auto) Baso % (Auto) Absolute Neuts (auto) Absolute Lymphs (auto) Nucleated RBC % Sodium Potassium Chloride Carbon Dioxide Anion Gap BUN Creatinine Estim Creat Clear Calc Est GFR (MDRD) Af Amer Est GFR (MDRD) Non-Af BUN/Creatinine Ratio Glucose Calcium Magnesium Total Bilirubin AST ALT Alkaline Phosphatase Total Protein Albumin Globulin Albumin/Globulin Ratio Lipase Urine Color Yellow Urine Clarity Sl. Cloudy Urine pH 6.0 Ur Specific [place] 1.015 Urine Protein 30 H Urine Glucose (UA) Normal Urine Ketones 50 H Urine Occult Blood 250 H Urine Nitrite Negative Urine Bilirubin Negative Urine Urobilinogen Normal Ur Leukocyte Esterase Negative Urine RBC 10-25 SEEN Urine WBC 0 SEEN Ur Squamous Epith Cells 0 SEEN Urine Bacteria RARE Urine Mucus 0 SEEN Urine Yeast 2+ Radiography Diagnostic Testing: Radiology Impression Abdomen/Pelvis CT 02/24/21 09:25 IMPRESSION: Colitis in the transverse, descending and sigmoid colon. No bowel obstruction. Normal appendix. No free air, free fluid or fluid collection. Electronically Signed: Milind Mims MD at 10:13 EDT Tel , Service support , Discharge Plan Disposition Disposition: Acute Care Hospital [facility] Discharge Date/Time: 02/24/21 11:56
[2021-02-24 09:31] LABS: Absolute Lymphocyte Count 1.19 X10^3/uL (0.83-4.51); Absolute Neutrophil Count 18.7 X10^3/uL (2.0-7.7); Basophil# 0.02 X10^3/uL; Basophil% 0.1 % (0-1); Eosinophil# 0.01 X10^3/uL; Hematocrit 42.4 % (37-47); Hemoglobin 14.3 g/dL (12.0-15.0); Lymphocyte # 1.19 X10^3/ul (0.83-4.51); Lymphocyte % 5.7 % (19-41); Mean Corp Hgb Conc 33.7 g/dL (32-36); Mean Corpuscular Hgb 30.8 pg (27.0-32.0); Mean Corpuscular Volume 91.2 fL (81-99); Mean Platelet Vol. 8.9 fl (6.2-12.0); Monocyte# 0.92 X10^3/uL; Monocyte% 4.4 % (0-10); NRBC Flagged by Analyzer 0 % (0-5); Neutrophil # 18.66 X10^3/uL (2.7-7.7); Neutrophil % 89.2 % (47-70); Platelet Count 354 K/mm3 (150-450); RBC Distribution Width CV 12.9 % (11.6-14.6); RBC Distribution Width SD 43.1 fl (35.1-43.9); Red Blood Count 4.65 M/mm3 (4.2-5.4); White Blood Count 20.9 K/mm3 (4.4-11.0)
[2021-02-24] MEDS: 0.9% Normal Saline 1,000 ML 1000 ML IV (09:35)
[2021-02-24] MEDS: Ondansetron 4 MG/2 ML Vial IV (09:36)
[2021-02-24] MEDS: Morphine 4 MG/ML Syringe IV (09:36)
[2021-02-24 09:47] LABS: ALB/GLOB Ratio 0.8 RATIO (0.9-2.4); AST(SGOT) 6 U/L (15-37); Alanine Aminotransfer ALT/SGPT 20 U/L (13-56); Albumin, Serum 3.8 g/dL (3.2-5.0); Alkaline Phosphatase 116 U/L (45-117); Anion Gap 9 (5-15); BUN 9 mg/dL (7-18); BUN/Creat Ratio 13.8 RATIO (10-20); Chloride 104 mmol/L (98-107); Creatinine, Serum 0.65 mg/dL (0.55-1.02); EST Glomerular Filtration Rate 99 mL/min (>60); Est Glom Filt Rate - Afr Amer 120 mL/min (>60); Estimated Creatinine Clearance 80.39 ml/min; Globulin 4.6 g/dL (2.2-4.2); Glucose 127 mg/dL (74-106); Lipase 65 U/L (73-393); Potassium 3.1 mmol/L (3.5-5.1); Protein, Total 8.4 g/dL (6.4-8.2); Sodium Level 137 mmol/L (136-145)
[2021-02-24 10:20] LABS: Magnesium 2.1 mg/dL (1.6-2.6)
[2021-02-24 10:26] LABS: Mucous, Urine 0 SEEN /hpf (<or=2+); Squamous Epithelial Cells - UA 0 SEEN /hpf (5-10); White Blood Cells 0 SEEN /hpf (0-5)
[2021-02-24 10:28] LABS: Color, Urine Yellow (Yellow); Glucose, Dipstick Normal (Normal); Ketone-Dipstick 50 mg/dl (Negative); Leukocyte Esterase-Dipstick Negative /ul (Negative); Nitrite-Dipstick Negative (Negative); Occult Blood-Urine 250 /ul (Negative); Protein-Dipstick 30 mg/dl (Negative); Specific Gravity, Urine 1.015 (1.002-1.030); Urine Bilirubin Dipstick Negative (Negative); Urine Clarity Sl. Cloudy (Clear); Urine Urobilinogen Normal (Normal)
[2021-02-24 10:37] LABS: Bacteria RARE /hpf (None Seen); Red Blood Cells-Urine 10-25 SEEN /hpf (0-5); Yeast-Urine 2+ /hpf (None Seen)
--- NOTE | 2021-02-24 11:04 | HP.PCM.HOS_ITS ---
HPI - General General Date of Admission: 02/24/21 HPI Narrative DODIE PAZ, is a 60 F with a PMT as outlined who presents with a complaint of abdominal pain. Symptoms had been going on for a 3 days. She had associated nausea, vomiting, and diarrhea and had not been able to eat or drink anything for a few days. She doesnt have a history of C Diff, but was recently on amoxicillin and clindamycin for a tooth infection a few weeks ago. She doesnt think it is related to any food she ate, and is the only one sick in her house. She says diarrhea is aggravated by food. She has no other symptoms and denies any known contact. Vitals showed BP of 156/88, NE of 53, RR of 16 and she was saturating at 100% on room air. Labs showed wbc of 20.9, Hb of 14.3, platelets of 354 and chemistry was significant for potassium of 3.1; Cr was 0.65.Urinalysis was negative for bacteria. CT of the abomen and pelvis showed evidence of pancolitis. She is being admitted to be managed for acute colitis, with suspicion for C Diff. C Diff was pending as she hadnt had a bowel movement since being in the ED. PFSH Medical History Anxiety DDD (degenerative disc disease) Depression Osteoarthritis Smoker Medical History no medical history Home Medications ondansetron 4 mg PO Q8H PRN PRN #14 tab 02/24/20 [Rx Last Taken Unknown] pantoprazole 40 mg PO DAILY #30 tab 02/24/20 [Rx Last Taken Unknown] Allergy/AdvReac Type Severity Reaction Status Date / Time ibuprofen Allergy Upset Verified 02/24/21 12:15 Stomach dust Allergy Shortness Uncoded 02/24/21 12:15 of breath Social History Smoking Status: Current every day smoker tobacco type: cigarettes ROS Constitutional Constitutional: Reports fatigue, fever(s), malaise and weakness; Denies anorexia, change in weight or chills ENT HEENT: Denies dysphagia, headache(s), nasal congestion, nasal discharge or sinus pressure Cardiovascular Cardiovascular: Denies chest pain, dyspnea on exertion, lightheadedness, orthopnea, palpitations or paroxysmal nocturnal dyspnea Respiratory/Chest Respiratory/Chest: Denies cough, dyspnea, productive cough, shortness of breath at rest or shortness of breath with exertion Gastrointestinal Gastrointestinal: Reports abdominal pain, diarrhea, nausea and vomiting; Denies constipation, hematemesis or hematochezia Genitourinary Genitourinary: Denies burning urination or dysuria Musculoskeletal Musculoskeletal: Denies back pain Neurologic Neurologic: Denies confusion, focal weakness or headache(s) Psychiatric Psychiatric: Denies anxiety or depression Endocrine Endocrinology: Denies change in body appearance Hematologic/Lymphatic Hematologic/Lymphatic: Denies anemia Vital Signs Vital Signs Vital Signs: 02/24/21 08:56 02/24/21 08:58 02/24/21 09:39 Temperature 97.8 F 97.8 F Temperature Source Temporal Temporal Pulse Rate 61 61 61 Respiratory Rate 18 18 18 Blood Pressure 185/127 H 185/127 H 159/87 H Blood Pressure Mean 146 146 111 Pulse Ox 99 99 100 Oxygen Delivery Method Room Air Room Air Room Air 02/24/21 09:58 02/24/21 10:34 Temperature 97.8 F Temperature Source Temporal Pulse Rate 53 L 53 L Respiratory Rate 16 16 Blood Pressure 156/88 H 156/88 H Blood Pressure Mean 110 110 Pulse Ox 100 100 Oxygen Delivery Method Room Air Room Air Weight Weight: 119 lb Body Mass Index (BMI) 20.4 Physical Exam Const alert and oriented x3 General Appearance: cooperative HEENT head/scalp atraumatic and hearing grossly normal bilaterally HEENT Narrative: dry mucosal membranes Eyes PERRL, EOMs intact bilaterally and conjunctivae normal Neck no lymphadenopathy Resp normal respiratory effort, no retractions, no use of accessory muscles and clear to auscultation bilaterally Cardio regular rate, regular rhythm, S1 normal heart sound, S2 normal heart sound and no murmurs GI GI Narrative: abdomen soft, tender, no guarding or rebound tenderness, no organomegaly. Extremity normal to inspection, full ROM and no clubbing, cyanosis or edema Peripheral Pulses: Yes pulses 2+ throughout Skin no rashes or lesions noted Neuro oriented x3, CN's II-XII intact bilaterally and moves all extremities Sensorium / Orientation: awake and alert Psych affect normal Results Lab / Micro Data Result Diagrams: 02/24/21 09:14 02/24/21 09:14 Labs: Laboratory Results - last 24 hr 02/24/21 09:14: WBC 20.9 H, RBC 4.65, Hgb 14.3, Hct 42.4, MCV 91.2, MCH 30.8, MCHC 33.7, RDW Std Deviation 43.1, RDW Coeff of Bibi 12.9, Plt Count 354, MPV 8.9, Immature Gran % (Auto) 0.600, Neut % (Auto) 89.2 H, Lymph % (Auto) 5.7 L, [place] % (Auto) 4.4, Eos % (Auto) 0.0, Baso % (Auto) 0.1, Absolute Neuts (auto) 18.7 H, Absolute Lymphs (auto) 1.19, Nucleated RBC % 0 02/24/21 09:14: Sodium 137, Potassium 3.1 L, Chloride 104, Carbon Dioxide 24.0, Anion Gap 9, BUN 9, Creatinine 0.65, Estim Creat Clear Calc 80.39, Est GFR (MDRD) Af Amer 120, Est GFR (MDRD) Non-Af 99, BUN/Creatinine Ratio 13.8, Glucose 127 H, Calcium 9.0, Total Bilirubin 0.40, AST 6 L, ALT 20, Alkaline Phosphatase 116, Total Protein 8.4 H, Albumin 3.8, Globulin 4.6 H, Albumin/Globulin Ratio 0.8 L, Lipase 65 L 02/24/21 09:14: Magnesium 2.1 02/24/21 10:20: Urine Color Yellow, Urine Clarity Sl. Cloudy, Urine pH 6.0, Ur Specific [place] 1.015, Urine Protein 30 H, Urine Glucose (UA) Normal, Urine Ketones 50 H, Urine Occult Blood 250 H, Urine Nitrite Negative, Urine Bilirubin Negative, Urine Urobilinogen Normal, Ur Leukocyte Esterase Negative, Urine RBC 10-25 SEEN, Urine WBC 0 SEEN, Ur Squamous Epith Cells 0 SEEN, Urine Bacteria RARE, Urine Mucus 0 SEEN, Urine Yeast 2+ Micro: Microbiology 02/24/21 09:30 Nasal Secretion SARS-CoV-2 Antigen (Rapid) - Final Radiology Impression Abdomen/Pelvis CT 02/24/21 09:25 IMPRESSION: Colitis in the transverse, descending and sigmoid colon. No bowel obstruction. Normal appendix. No free air, free fluid or fluid collection. Electronically Signed: Milind Mims MD at 10:13 EDT Tel , Service support , Assessment & Plan Assessment/Plan (1) Colitis: PLAN: #Acute colitis, suspect C Diff * was recently on oral antibiotics for tooth infection ~ 2 weeks ago * hasnt had a bowel movement since arrival, so C Diff screen is pending * CT of the abdomen and pelvis showed pancolitis. * admit to med surg under observation * hydrate gently with iVF * Iv morphine prn for pain * await C Diff to determine whether to start oral vancomycin or otherwise. * IV zofran prn * check stool for enteric pathogens also. * start on IV ciprofloxacin and metronidazole * #History of arthritis: Not on any medications. Stable. #Depression and anxiety: Does not appear to be on any medications at home either. Follow-up with PCP on outpatient basis. DVT prophylaxis: lovenox CODE STATUS: Full code * Patient and daughter counseled about difference between full code, DNR CCA and DNR CCA. Patient elects to be full code. Total isog-et-yobw time 16 minutes. # Charges/Coding Visit Charges OBSV E&M: 73115 Initial observation care L3 Procedures Hospitalists Procedures: 67802 Advncd Care Plan 30 Min
--- NOTE | 2021-02-24 11:06 | NURSING ---
DR CERDA FOR DR VILLAVICENCIO
--- NOTE | 2021-02-24 11:12 | NURSING ---
MED SURG OBS KORAM DIARRHEA, LEUKOCYTOSIS
--- NOTE | 2021-02-24 11:23 | NURSING ---
DR CERDA IN ER
--- NOTE | 2021-02-24 12:12 | PCS.PANDOC ---
PANDEMIC DOCUMENTATION INITIATED: Date: 01/04/2021 Time: 190
[2021-02-24] MEDS: 0.9% Normal Saline 1,000 ML 150 ML IV ×2 (13:50→22:48)
[2021-02-24] MEDS: 0.9% Saline Lock 10 ML Syringe IV (13:50)
[2021-02-24] MEDS: metroNIDAZOLE 500 MG/100 ML BAG 100 MG IV (18:54)
[2021-02-24] MEDS: Ciprofloxacin 400 MG/200 ML BAG 200 MG IV (21:08)
[2021-02-24] MEDS: MELATONIN 3 MG TABLET PO (21:09)
[2021-02-25 03:09] VITALS: BP 126/62; PULSE 50; RESP 16; TEMP 37.1; O2SAT 98
[2021-02-25] MEDS: metroNIDAZOLE 500 MG/100 ML BAG 100 MG IV ×3 (05:24→22:12)
[2021-02-25 06:12] LABS: Absolute Lymphocyte Count 1.95 X10^3/uL (0.83-4.51); Basophil# 0.02 X10^3/uL; Basophil% 0.2 % (0-1); Eosinophil# 0.16 X10^3/uL; Eosinophils% 1.8 % (0-5); Hematocrit 32.9 % (37-47); Hemoglobin 11.2 g/dL (12.0-15.0); Lymphocyte # 1.95 X10^3/ul (0.83-4.51); Mean Corpuscular Volume 91.1 fL (81-99); Mean Platelet Vol. 8.9 fl (6.2-12.0); Monocyte# 0.75 X10^3/uL; Monocyte% 8.5 % (0-10); NRBC Flagged by Analyzer 0 % (0-5); Neutrophil # 5.95 X10^3/uL (2.7-7.7); Neutrophil % 67.3 % (47-70); Platelet Count 294 K/mm3 (150-450); RBC Distribution Width CV 12.9 % (11.6-14.6); RBC Distribution Width SD 42.7 fl (35.1-43.9); Red Blood Count 3.61 M/mm3 (4.2-5.4); White Blood Count 8.9 K/mm3 (4.4-11.0)
[2021-02-25 06:50] LABS: Anion Gap 8 (5-15); BUN 3 mg/dL (7-18); BUN/Creat Ratio 5.9 RATIO (10-20); Calcium,Total 7.8 mg/dL (8.5-10.1); Chloride 114 mmol/L (98-107); Creatinine, Serum 0.51 mg/dL (0.55-1.02); EST Glomerular Filtration Rate 131 mL/min (>60); Est Glom Filt Rate - Afr Amer 159 mL/min (>60); Estimated Creatinine Clearance 94.72 ml/min; Glucose 99 mg/dL (74-106); Potassium 2.8 mmol/L (3.5-5.1); Sodium Level 146 mmol/L (136-145)
[2021-02-25 09:15] VITALS: BP 151/74; PULSE 50; RESP 18; TEMP 36.8; O2SAT 98
[2021-02-25] MEDS: 0.9% Saline Lock 10 ML Syringe IV (09:19)
[2021-02-25] MEDS: Ciprofloxacin 400 MG/200 ML BAG 200 MG IV ×2 (09:19→21:07)
[2021-02-25] MEDS: Potassium Chloride 10mEq/100mL 10 MEQ/100 ML IV.SOLN. 100 MEQ IV BOLUS ×4 (10:36→14:06)
[2021-02-25] MEDS: Ondansetron 4 MG/2 ML Vial IV (10:39)
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
--- NOTE | 2021-02-25 10:53 | PN.HOSP_ITS ---
Subjective Subjective Patient seen and examined. SHe feels better, though she still did have some abdominal pain. She insisted on having something to eat yesterday because she was very hungry, so she was placed on a clear liquid diet. She has tolerated this well, but says she still has mild abdominal pain. Review of systems otherwise negative. She hasnt had any more diarrhea. She has remained hemodynamically stable; pulse noted to be a bit slow at 50. Objective Data Objective Data Vital Signs: Vital Signs Temp Pulse Resp BP Pulse Ox 98.3 F 50 L 18 151/74 H 98 02/25/21 09:15 02/25/21 09:15 02/25/21 09:15 02/25/21 09:15 02/25/21 09:15 Oxygen Delivery Method Room Air Weight: 110 lb 0.171 oz Body Mass Index (BMI) 19.5 Intake & Output: Intake and Output for Last 24 Hours 02/23/21 02/24/21 02/25/21 23:59 23:59 23:59 Intake Total 2300 / 2300 800 / 800 Balance 2300 / 2300 800 / 800 Lab / Micro Data Result Diagrams: 02/25/21 05:40 02/25/21 05:40 Labs: Laboratory Results - last 24 hr 02/25/21 05:40: WBC 8.9, RBC 3.61 L, Hgb 11.2 L, Hct 32.9 L, MCV 91.1, MCH 31.0, MCHC 34.0, RDW Std Deviation 42.7, RDW Coeff of Bibi 12.9, Plt Count 294, MPV 8.9, Immature Gran % (Auto) 0.200, Neut % (Auto) 67.3, Lymph % (Auto) 22.0, [place] % (Auto) 8.5, Eos % (Auto) 1.8, Baso % (Auto) 0.2, Absolute Neuts (auto) 6.0, Absolute Lymphs (auto) 1.95, Nucleated RBC % 0 02/25/21 05:40: Sodium 146 H, Potassium 2.8 L, Chloride 114 H, Carbon Dioxide 24.0, Anion Gap 8, BUN 3 L, Creatinine 0.51 L, Estim Creat Clear Calc 94.72, Est GFR (MDRD) Af Amer 159, Est GFR (MDRD) Non-Af 131, BUN/Creatinine Ratio 5.9 L, Glucose 99, Calcium 7.8 L Micro: Microbiology 02/25/21 03:45 Stool C. difficile GDH Antigen & Toxins - Final 02/25/21 03:45 Stool C. difficile DNA Amplification - Final 02/25/21 03:45 Stool Enteric Bacteriology - Final 02/24/21 09:30 Nasal Secretion SARS-CoV-2 Antigen (Rapid) - Final Physical Exam Const alert, oriented x3 and no apparent distress General Appearance: cooperative Exam Limitations: no limitations HEENT head/scalp atraumatic, hearing grossly normal bilaterally and moist oral mucous membranes Head and Scalp: normocephalic Eyes PERRL, EOMs intact bilaterally and conjunctivae normal Neck no lymphadenopathy Resp normal respiratory effort, no retractions, no use of accessory muscles and clear to auscultation bilaterally Cardio regular rate, regular rhythm, S1 normal heart sound, S2 normal heart sound and no murmurs GI normal to inspection, nondistended, normoactive bowel sounds, soft to palpation, non-tender and non-distended Extremity normal to inspection, full ROM and no clubbing, cyanosis or edema Peripheral Pulses: Yes pulses 2+ throughout Skin no rashes or lesions noted Neuro oriented x3, CN's II-XII intact bilaterally and moves all extremities Sensorium / Orientation: awake and alert Psych affect normal Assessment & Plan Assessment/Plan (1) Colitis: PLAN: #Acute colitis, suspect C Diff * feels much better, though she has minimal abdominal pain today. * C Diff screen and enteric pathogen panel pending * CT of the abdomen and pelvis showed pancolitis. * on IV morphine prn for pain. * wbc has trended down from 20.9 on admission to 8.9 today * on IV metronidazole and IV ciprofloxacin. * C Diff antigen positive but negative for toxin; patient may therefore be colonised with C Diff or toxin is below limit of detection. * #History of arthritis: Not on any medications. Stable. #Depression and anxiety: * Does not appear to be on any medications at home either. * Follow-up with PCP on outpatient basis. DVT prophylaxis: lovenox CODE STATUS: Full code * Patient and daughter counseled about difference between full code, DNR CCA and DNR CCA. Patient elects to be full code. Total ibxk-[id number] time 16 minutes. Charges/Coding Visit Charges Inpatient E&M: 83545 Subs Hosp L2
--- NOTE | 2021-02-25 13:20 | NURSING ---
spoke w/pt and sig. other about importance of k+ replacement, we have iced the iv site, we have slowed down rate and added fluid to run with k+ to decrease pain-pt is crying, begging to eat 10 bananas instead of this but since pt is NPO, i explained that this is the option right now-encouraged her to take slow deep breaths and to place her focus on the tv or talking to sig other instead of staring at the iv site
[2021-02-25 15:15] VITALS: BP 133/69; PULSE 50; RESP 18; TEMP 36.7; O2SAT 98
--- NOTE | 2021-02-25 16:43 | CASEMGMT ---
MIREYA BULL in to discuss LITTLEJOHN form with patient. RN ML explained LITTLEJOHN form, patient voiced understanding. Pt refused to sign form, stating this was not a good time. Patient had no further questions or concerns at this time.
[2021-02-25 20:13] VITALS: BP 156/71; PULSE 50; RESP 18; TEMP 36.8; O2SAT 100
[2021-02-25] MEDS: DiphenhydrAMINE 25 MG Capsule PO (20:20)
[2021-02-26 02:30] VITALS: BP 134/69; PULSE 50; RESP 16; TEMP 36.8; O2SAT 99
[2021-02-26] MEDS: metroNIDAZOLE 500 MG/100 ML BAG 100 MG IV ×2 (05:18→13:34)
[2021-02-26] MEDS: hydrOXYzine PAM 25 MG Capsule PO (05:34)
[2021-02-26 06:57] LABS: Absolute Lymphocyte Count 2.02 X10^3/uL (0.83-4.51); Absolute Neutrophil Count 4.7 X10^3/uL (2.0-7.7); Basophil# 0.03 X10^3/uL; Basophil% 0.4 % (0-1); Eosinophils% 3.9 % (0-5); Hematocrit 34.7 % (37-47); Hemoglobin 11.7 g/dL (12.0-15.0); Lymphocyte # 2.02 X10^3/ul (0.83-4.51); Lymphocyte % 26.3 % (19-41); Mean Corp Hgb Conc 33.7 g/dL (32-36); Mean Corpuscular Hgb 30.6 pg (27.0-32.0); Mean Corpuscular Volume 90.8 fL (81-99); Mean Platelet Vol. 9.1 fl (6.2-12.0); Monocyte# 0.63 X10^3/uL; Monocyte% 8.2 % (0-10); NRBC Flagged by Analyzer 0 % (0-5); Neutrophil # 4.68 X10^3/uL (2.7-7.7); Neutrophil % 61.1 % (47-70); Platelet Count 328 K/mm3 (150-450); RBC Distribution Width CV 12.9 % (11.6-14.6); RBC Distribution Width SD 42.8 fl (35.1-43.9); Red Blood Count 3.82 M/mm3 (4.2-5.4); White Blood Count 7.7 K/mm3 (4.4-11.0)
[2021-02-26 07:19] LABS: Anion Gap 10 (5-15); BUN 6 mg/dL (7-18); Calcium,Total 8.1 mg/dL (8.5-10.1); Chloride 112 mmol/L (98-107); EST Glomerular Filtration Rate 109 mL/min (>60); Est Glom Filt Rate - Afr Amer 132 mL/min (>60); Estimated Creatinine Clearance 80.51 ml/min; Glucose 76 mg/dL (74-106); Sodium Level 144 mmol/L (136-145)
[2021-02-26 08:00] VITALS: PULSE 58
[2021-02-26 08:03] LABS: Magnesium 1.9 mg/dL (1.6-2.6)
[2021-02-26] MEDS: Potassium Chloride 10mEq/100mL 10 MEQ/100 ML IV.SOLN. 50 MEQ IV BOLUS ×2 (08:31→11:29)
[2021-02-26 09:12] VITALS: BP 137/91; PULSE 54; RESP 16; TEMP 36.7; O2SAT 96
[2021-02-26 09:17] VITALS: O2SAT 96
[2021-02-26] MEDS: Ciprofloxacin 400 MG/200 ML BAG 200 MG IV (10:17)
--- NOTE | 2021-02-26 10:32 | CASEMGMT ---
Late entry RN ML Assessment: Face to Face with pt for initial transition planning/care coordination assessment. RN CM introduced self and role at [facility], pt voices understanding and consents to assessment. Pt is A/O x4 and answers all questions appropriately at this time. Pt lying in bed in no distress. Care providers, pharmacy, and demographics verified/updated. Admitting Dx: acute colitis, positive cdiff PCP:[facility] Specialists:Pt denies. Preferred Pharmacy: [facility] Insurance: MMO Prescription Benefit: yes LW/HPOA: Pt denies having a LW/DPOA and denies need for info regarding AD. LNOK: Carlgarry Lai, ; Christiano Muñoz Living Arrangements: Pt lives with in a single story duplex with 3 steps to enter with a rail. Pt reports she is I in ADL's and denies concerns at home. Transportation: Pt drives self and denies concerns with transportation. DME/HHC/SNF: Pt denies having any DME, hx of HHC or SNF stay. Pt states no concerns with going home at time of dc. Pt states no further concerns/needs. CM to follow. Advised pt to ask CM if any further question/concerns/needs arise, voices understanding. Pt Goal: Home Plan: Home
[2021-02-26] MEDS: Enoxaparin 40 MG/0.4 ML Syringe SC (11:19)
--- NOTE | 2021-02-26 12:04 | DS.PCM_ITS ---
Providers Date of Admission: 02/24/21 Primary Care Physician: Dr. Yaya Monet, DO Reason For Visit: Acute Colitis, Positive C-Diff. NPO on IV Cipro Diagnosis Discharge Diagnosis (1) Colitis: Status: Acute Code(s): K52.9 - Noninfective gastroenteritis and colitis, unspecified Medications at Discharge Home Medications ondansetron 4 mg PO Q8H PRN PRN #14 tab 02/24/20 pantoprazole 40 mg PO DAILY #30 tab 02/24/20 ciprofloxacin HCl 500 mg PO BID #10 tab 02/26/21 metronidazole 500 mg PO Q8H #15 tab 02/26/21 Hospital Course Operations None Procedures None Summary of Care Provided Minutes Spent on Discharge: 45 Hospital Course: DODIE PAZ, is a 60 F with a PMT as outlined who presents with a complaint of abdominal pain. Symptoms had been going on for 3 days prior to admission. She had associated nausea, vomiting, and diarrhea and had not been able to eat or drink anything for a few days. She doesnt have a history of C Diff, but was recently on amoxicillin and clindamycin for a tooth infection a few weeks ago. She doesnt think it is related to any food she ate, and is the only one sick in her house. She says diarrhea is aggravated by food. She has no other symptoms and denies any known contact. Vitals showed BP of 156/88, MO of 53, RR of 16 and she was saturating at 100% on room air. Labs showed wbc of 20.9, Hb of 14.3, platelets of 354 and chemistry was significant for potassium of 3.1; Cr was 0.65.Urinalysis was negative for bacteria. CT of the abdomen and pelvis showed evidence of pancolitis. She was admitted to be managed for acute colitis, with suspicion for C Diff. C Diff was pending as she hadnt had a bowel movement since being in the ED. She was put on IV ciprofloxacin and metronidazole. She was kept NPO, and hydrated with IVF. Stool for enteric pathogen was negative and C Diff test was negative for toxins but positive for antigen, indicating colonisation or low toxin level that couldnt be detected. Patient had 2 more episodes of diarrhea, but it subsequently completely resolved and she felt much better. I did discuss her findings of positive antigen but negative toxins for the C. difficile test with Dr. Montoya. Per the discussion, in light of patient's diarrhea resolving and her improving, colitis was less likely to be due to C. difficile. She was able to tolerate a full liquid diet, which was advanced to soft diet. She remained stable and was discharged home on 02/26/2021. She was discharged home on p.o. ciprofloxacin and p.o. metronidazole to complete a 7 day course of antibiotics and is to follow-up with her primary care doctor in 1 to 2 weeks. Patient seen and examined prior to discharge. She felt well and had no complaints. Review of systems otherwise negative. Labs and vitals reviewed. Home medication reviewed and reconciled. Physical Exam Const alert, oriented x3 and no apparent distress General Appearance: cooperative and comfortable Exam Limitations: no limitations HEENT normocephalic, head/scalp atraumatic, hearing grossly normal bilaterally and moist oral mucous membranes Eyes PERRL, EOMs intact bilaterally and conjunctivae normal Neck no lymphadenopathy Resp normal respiratory effort, no retractions, no use of accessory muscles and clear to auscultation bilaterally Cardio regular rate, regular rhythm, S1 normal heart sound, S2 normal heart sound and no murmurs GI normal to inspection, nondistended, normoactive bowel sounds, soft to palpation, non-tender and non-distended Extremity normal to inspection, full ROM and no clubbing, cyanosis or edema Skin no rashes or lesions noted Neuro oriented x3, CN's II-XII intact bilaterally and moves all extremities Sensorium / Orientation: awake and alert Psych affect normal Weight / BMI Weight Weight: 110 lb 0.171 oz Body Mass Index (BMI) 19.5 ABG / Lab / Microbiology Data Result Diagrams: 02/26/21 05:48 02/26/21 05:48 Laboratory: Laboratory Results - last 24 hr 02/26/21 05:48: WBC 7.7, RBC 3.82 L, Hgb 11.7 L, Hct 34.7 L, MCV 90.8, MCH 30.6, MCHC 33.7, RDW Std Deviation 42.8, RDW Coeff of Bibi 12.9, Plt Count 328, MPV 9.1, Immature Gran % (Auto) 0.100, Neut % (Auto) 61.1, Lymph % (Auto) 26.3, [place] % (Auto) 8.2, Eos % (Auto) 3.9, Baso % (Auto) 0.4, Absolute Neuts (auto) 4.7, Absolute Lymphs (auto) 2.02, Nucleated RBC % 0 02/26/21 05:48: Sodium 144, Potassium 3.0 L, Chloride 112 H, Carbon Dioxide 22.0, Anion Gap 10, BUN 6 L, Creatinine 0.60, Estim Creat Clear Calc 80.51, Est GFR (MDRD) Af Amer 132, Est GFR (MDRD) Non-Af 109, BUN/Creatinine Ratio 10.0, Glucose 76, Calcium 8.1 L 02/26/21 05:48: Magnesium 1.9 Microbiology: Microbiology 02/25/21 03:45 Stool C. difficile GDH Antigen & Toxins - Final 02/25/21 03:45 Stool C. difficile DNA Amplification - Final 02/25/21 03:45 Stool Enteric Bacteriology - Final 02/24/21 09:30 Nasal Secretion SARS-CoV-2 Antigen (Rapid) - Final D/C Instructions Discharge Diet: Soft diet (advance slowly to regular diet as tolerated) Discharge Activity: Return to Normal Activity Weight Bearing Status: Weight bearing as tolerated Call your doctor if you observe: Fever of 101 or Higher, Shortness of breath, Swelling in the ankles and Increased palpitations (irregular heartbeat) Meaningful Use Info Meaningful Use Diagnoses (Choose all that apply): None applicable Discharge Plan Admission Admit Date/Time: 02/24/21 16:26 Primary Reason for Your Visit: colitis Attending Provider: Beatrice Boyle Primary Care Provider: Yaya Monet Instructions Patient Instructions: ED Gastroenteritis, Bacterial (Adult) Discharge Orders/Prescriptions Prescriptions: New ciprofloxacin HCl 500 mg tablet 500 mg PO BID Qty: 10 RF: 0 metronidazole 500 mg tablet 500 mg PO Q8H Qty: 15 RF: 0 Continued pantoprazole 40 MG tablet 40 mg PO DAILY Qty: 30 RF: 0 ondansetron 4 MG tablet 4 mg PO Q8H PRN PRN (Reason: Nausea) Qty: 14 RF: 0 Referrals / Follow Up: Yaya Monet DO [Primary Care Provider] - Disposition Discharge Orders: Discharge Patient (Routine); Ordered 02/26/21 Ordered By: Dr. Beatrice Boyle Charges/Coding Visit Charges Inpatient E&M: 37245 Disch Hosp
[2021-02-26] MEDS: Potassium Chloride 10mEq/100mL 10 MEQ/100 ML IV.SOLN. 75 MEQ IV BOLUS ×2 (13:47→14:59)
[2021-02-26 14:30] VITALS: BP 127/78; PULSE 55; RESP 16; TEMP 36.9; O2SAT 96
== END 2021-02-26 17:45 | disposition home or self-care (01) | DRG 392 ==
LOC: ED 10:05 → MS3 11:43
PROVIDERS: Admitting Provider Student in an Organized Health Care Education/Training Program; Emergency Provider Student in an Organized Health Care Education/Training Program; PCP Student in an Organized Health Care Education/Training Program; Visit Provider Student in an Organized Health Care Education/Training Program
DX: K52.9 Noninfective gastroenteritis and colitis, unspecified (principal); M19.90 Unspecified osteoarthritis, unspecified site; F32.9 Major depressive disorder, single episode, unspecified; F41.9 Anxiety disorder, unspecified; F17.210 Nicotine dependence, cigarettes, uncomplicated
CPT/HCPCS: 36415; 74177; 80048; 80053; 81001; 83690; 83735; 85025; 87426; 87493; 87506; 97802; 99284; J7030; J7050; Q9967; A4216; J0744; J2405

== ENCOUNTER 2021-04-25 11:41 | Emergency (ER) | payer OTHER, SELFPAY ==
[2021-04-25 11:42] VITALS: BP 168/92; PULSE 75; RESP 16; TEMP 36.6; O2SAT 97; BMI 18.9
[2021-04-25 12:22] VITALS: BP 195/98; PULSE 64; RESP 13; O2SAT 97; O2SAT 98
--- NOTE | 2021-04-25 12:38 | RAD_ITS ---
STUDY: X-RAY CHEST REASON FOR EXAM: Female, 60 years old. CP TECHNIQUE: Single AP portable view of the chest. COMPARISON: February 08, 2013 chest x-ray FINDINGS: The lungs are clear and expanded. There is no demonstrated pleural abnormality. Normal size heart. Normal mediastinum and gracy. Normal visualized pulmonary arteries. There is atherosclerotic tortuosity of the aortic arch and descending thoracic aorta. Normal visualized thoracic spine. Normal visualized ribs, clavicles, and shoulders. There is no demonstrated abnormality of the visualized soft tissue structures of the upper abdomen. RAD/Chest 1 View (Portable) IMPRESSION: No demonstrated acute cardiopulmonary process. Electronically Signed: Vy Woodard MD at 13:28 EST Tel , Service support ,
--- NOTE | 2021-04-25 12:38 | CT_ITS ---
STUDY: CT BRAIN WITHOUT CONTRAST REASON FOR EXAM: Female, 60 years old. Headache RADIATION DOSAGE (If Supplied By Facility): CTDIvol = ( 44.99 ) mGy, DLP = ( 745.49 ) mGycm TECHNIQUE: Transaxial CT imaging of the brain was performed without administration of intravenous contrast material. Individualized dose optimization techniques were used for this CT. COMPARISON: March 11, 2013 CT head FINDINGS: Normal soft tissue structures. Normal calvarium. Normal size ventricles and extra-axial spaces for the patient''s age. Normal white matter tracts of the cerebral hemispheres. Normal basal ganglia and thalami. Normal brainstem. Normal cerebellum. There is no intracranial hemorrhage. There are no findings of an acute ischemic infarction. Normal visualized paranasal sinuses. There is rightward nasal deviation and spurring. There is trace calcification of the right vertebral artery. CT/Brain/Head without Contrast IMPRESSION: Normal unenhanced CT scan of the brain. Electronically Signed: Vy Woodard MD at 13:28 EST Tel , Service support ,
--- NOTE | 2021-04-25 12:39 | EKG12_ITS ---
Test Reason : Blood Pressure : / mmHG Vent. Rate : 061 BPM Atrial Rate : 061 BPM P-R Int : 146 ms QRS Dur : 078 ms QT Int : 418 ms P-R-T Axes : 033 040 024 degrees QTc Int : 420 ms Normal sinus rhythm Normal ECG Confirmed by ARIANA JOHNSON, JORDAN ([id number]), editorial director JOLANTA PPIER ([id number]) on 04/26/2021 10:38:33 AM Referred By: FRAN Confirmed By:JORDAN LANE MD
[2021-04-25 13:00] LABS: Absolute Lymphocyte Count 1.93 X10^3/uL (0.83-4.51); Absolute Neutrophil Count 5.5 X10^3/uL (2.0-7.7); Basophil# 0.03 X10^3/uL; Basophil% 0.4 % (0-1); Eosinophil# 0.05 X10^3/uL; Eosinophils% 0.6 % (0-5); Hemoglobin 11.4 g/dL (12.0-15.0); Lymphocyte # 1.93 X10^3/ul (0.83-4.51); Lymphocyte % 23.8 % (19-41); Mean Corp Hgb Conc 34.5 g/dL (32-36); Mean Corpuscular Hgb 31.2 pg (27.0-32.0); Mean Corpuscular Volume 90.4 fL (81-99); Mean Platelet Vol. 8.5 fl (6.2-12.0); Monocyte# 0.61 X10^3/uL; Monocyte% 7.5 % (0-10); NRBC Flagged by Analyzer 0 % (0-5); Neutrophil # 5.48 X10^3/uL (2.7-7.7); Neutrophil % 67.5 % (47-70); Platelet Count 300 K/mm3 (150-450); RBC Distribution Width CV 13.1 % (11.6-14.6); RBC Distribution Width SD 42.8 fl (35.1-43.9); Red Blood Count 3.65 M/mm3 (4.2-5.4); White Blood Count 8.1 K/mm3 (4.4-11.0)
[2021-04-25 13:19] LABS: Anion Gap 7 (5-15); BUN 9 mg/dL (7-18); BUN/Creat Ratio 11.8 RATIO (10-20); Calcium,Total 8.9 mg/dL (8.5-10.1); Chloride 102 mmol/L (98-107); Creatinine, Serum 0.76 mg/dL (0.55-1.02); EST Glomerular Filtration Rate 83 mL/min (>60); Est Glom Filt Rate - Afr Amer 100 mL/min (>60); Estimated Creatinine Clearance 61.82 ml/min; Glucose 115 mg/dL (74-106); Potassium 3.6 mmol/L (3.5-5.1); Sodium Level 134 mmol/L (136-145); Troponin-I HS 4 pg/mL (3.0-54.0)
[2021-04-25 14:04] VITALS: BP 163/100; PULSE 59; RESP 24; O2SAT 97
--- NOTE | 2021-04-25 14:20 | EDS_ITS ---
HPI History of Present Illness Chief Complaint: Cough Detail of Chief Complaint: URI symptoms, head Informant: patient and family Onset/Context/Timing Onset: Weeks (3 weeks) Context: Gradual Onset Timing: Waxes and wanes Current Severity: Moderate Maximum Severity: Moderate Narrative Narrative: Patient presents secondary to congestion and URI symptoms ongoing for the past 3 weeks. She states she is been to the urgent care at [facility] multiple times and feels that no one is taking her seriously. She states she feels a soft spongy sensation of the back of her head. She did have a previous head trauma to this area but states it was never evaluated. She denies any fever or chills. She does report occasionally she will feel a ticking sensation in her chest, most recent episode was yesterday. She states usually if she just pushes on the chest wall it will go away. She did have both a rapid and PCR Covid test recently that were negative. PFSH PFSH Medical History Anxiety DDD (degenerative disc disease) Depression Osteoarthritis Smoker Home Medications ondansetron 4 mg PO Q8H PRN PRN #14 tab 02/24/20 [Rx Last Taken Unknown] pantoprazole 40 mg PO DAILY #30 tab 02/24/20 [Rx Last Taken Unknown] ciprofloxacin HCl 500 mg PO BID #10 tab 02/26/21 [Rx Last Taken Unknown] metronidazole 500 mg PO Q8H #15 tab 02/26/21 [Rx Last Taken Unknown] lorazepam [Ativan] 0.5 mg PO BID PRN #10 tab 04/25/21 [Rx Last Taken Unknown] Allergy/AdvReac Type Severity Reaction Status Date / Time ibuprofen Allergy Upset Verified 04/25/21 11:42 Stomach dust Allergy Shortness Uncoded 04/25/21 11:42 of breath Social History Smoking Status: Current every day smoker tobacco type: cigarettes ROS ROS ED Constitutional Constitutional ED: Denies chills or fever(s) Eyes Eyes: Denies blurry vision or change in vision ENT ENT ED: Reports rhinorrhea, sore throat and other Details: Congestion Cardiovascular Cardiovascular: Reports chest pain Respiratory/Chest Respiratory/Chest: Reports dyspnea Gastrointestinal Gastrointestinal: Denies abdominal pain, diarrhea or vomiting Genitourinary Genitourinary ED: Denies dysuria Musculoskeletal Musculoskeletal: Denies back pain or neck pain Integumentary Denies rash Neurologic Neurologic: Reports headache(s) Psychiatric Psychiatric: Reports anxiety Allergic/Immunologic Allergic/Immunologic ED: Denies urticaria EXAM Physical Exam Const Vital Signs: 04/25/21 11:42 04/25/21 12:22 04/25/21 14:04 Temperature 98 F Temperature Source Temporal Pulse Rate 75 64 59 L Respiratory Rate 16 13 24 H Respiratory Effort Normal Respiratory Depth Normal Respiratory Pattern Normal Blood Pressure 168/92 H 195/98 H 163/100 H Blood Pressure Mean 117 130 121 Pulse Ox 97 97 97 Oxygen Delivery Method Room Air Room Air Room Air Positive well nourished and well developed General Appearance ED: well developed HEENT Reports moist mucous membranes Eyes PERRL and EOMs intact bilaterally Neck supple Chest Wall inspection of chest normal and palpation of chest normal Resp normal respiratory effort and clear to auscultation bilaterally Cardio regular rate GI normal to inspection, nondistended, normoactive bowel sounds and non-tender Palpation: soft Extremity normal to inspection Neuro oriented x3 Sensorium / Orientation: alert Psych Mood & Affect: anxious Skin no rashes or lesions noted MDM MDM MDM Narrative Medical decision making narrative: EKG, chest x-ray, lab work obtained. Head CT ordered. Lab Data Attestation: I reviewed the patient's lab results. Labs: Laboratory Results - last 24 hr 04/25/21 04/25/21 12:55 12:55 WBC 8.1 RBC 3.65 L Hgb 11.4 L Hct 33.0 L MCV 90.4 MCH 31.2 MCHC 34.5 RDW Std Deviation 42.8 RDW Coeff of Bibi 13.1 Plt Count 300 MPV 8.5 Immature Gran % (Auto) 0.200 Neut % (Auto) 67.5 Lymph % (Auto) 23.8 [place] % (Auto) 7.5 Eos % (Auto) 0.6 Baso % (Auto) 0.4 Absolute Neuts (auto) 5.5 Absolute Lymphs (auto) 1.93 Nucleated RBC % 0 Sodium 134 L Potassium 3.6 Chloride 102 Carbon Dioxide 25.0 Anion Gap 7 BUN 9 Creatinine 0.76 Estim Creat Clear Calc 61.82 Est GFR (MDRD) Af Amer 100 Est GFR (MDRD) Non-Af 83 BUN/Creatinine Ratio 11.8 Glucose 115 H Calcium 8.9 Troponin I High Sens 4 Radiography Chest X-Ray - ED: 1 View, Read by ED Physician, Normal, Heart, Lungs and Mediastinum Diagnostic Testing: Clinical Impression(s) from Imaging Studies Brain CT 04/25/21 12:38 IMPRESSION: Normal unenhanced CT scan of the brain. Electronically Signed: Vy Woodard MD at 13:28 EST Tel , Service support , Chest X-Ray 04/25/21 12:38 IMPRESSION: No demonstrated acute cardiopulmonary process. Electronically Signed: Vy Woodard MD at 13:28 EST Tel , Service support , EKG Initial EKG: Attestation: I personally reviewed and interpreted this EKG as follows: Interpretation: Sinus Rhythm (Sinus at 61 with no acute ischemia.) Treatment and Re-Evaluation Comments:: Test results reviewed and unremarkable. Chest x-ray clear with no infiltrate. Head CT normal. Test results all discussed with the patient as well as her daughter at bedside. She states has been on multiple rounds of antibiotics without improvement in her symptoms. I advised her this is likely because this is a viral illness and will simply need to run its course. Viral illnesses can last 3 to 4 weeks. Patient does report significant anxiety related to her illness and states that she gets very short of breath which makes her anxiety even worse. She will be given a short course of low-dose Ativan as needed. Return instructions provided. Discharge Plan Triage Chief Complaint: Cough ED Provider: Pamela Barragan Dx/Rx/DC Orders Clinical Impression: Viral URI, Anxiety Instructions: ED Anxiety Reaction, ED URI, Viral, No Abx (Adult) Prescriptions: New lorazepam [Ativan] 0.5 mg tablet 0.5 mg PO BID PRN (Reason: anxiety) Qty: 10 RF: 0 No Action pantoprazole 40 MG tablet 40 mg PO DAILY Qty: 30 RF: 0 ondansetron 4 MG tablet 4 mg PO Q8H PRN PRN (Reason: Nausea) Qty: 14 RF: 0 ciprofloxacin HCl 500 mg tablet 500 mg PO BID Qty: 10 RF: 0 metronidazole 500 mg tablet 500 mg PO Q8H Qty: 15 RF: 0 Primary Care Provider: Yaya Monet Referrals: Yaya Monet DO [Primary Care Provider] - Disposition Disposition: Home, Self Care
[2021-04-25 14:45] VITALS: BP 145/69; PULSE 63; RESP 15; O2SAT 99
== END 2021-04-25 14:46 | disposition home or self-care (01) ==
PROVIDERS: Emergency Provider Emergency Medicine; PCP Student in an Organized Health Care Education/Training Program
DX: J06.9 Acute upper respiratory infection, unspecified (principal); F41.9 Anxiety disorder, unspecified; F17.210 Nicotine dependence, cigarettes, uncomplicated
CPT/HCPCS: 70450; 71045; 80048; 84484; 85025; 93005; 99284; A4216